=== PATIENT | female | born 1965 | race Caucasian/White ===

== ENCOUNTER → 2016-10-05 | Outpatient (CLI) | payer OTHER ==
[~2016-10-05] MED LIST: Albuterol Inhaler INH; BUPR15TA PO; CETI10TA PO; EPI; HYZAAR PO; Ibuprofen PO; SING10TA31 PO; Tylenol PO; VICO5TAB OR; [UNRECOGNIZED DRUG - OTHER] PO; [UNRECOGNIZED DRUG - REMARK]
--- NOTE | 2016-10-05 09:24 | REP ---
MAXILLOFACIAL CT WITHOUT CONTRAST: HISTORY: Chronic sphenoid sinusitis. The frontal sinuses are hypoplastic. Minimal mucosal thickening is present in the left maxillary and right sphenoid sinuses. The remaining sinuses are clear. The middle and inferior nasal turbinates are partially paradoxical. There is minimal deviation of the nasal septum to the right. A spur is present arising from the right side of the nasal septum. The cribriform plate, medial maravilla of the orbits and optic canals are intact. The carotid canals form a segment of the posterolateral maravilla of the sphenoid sinus. There is sclerosis of the maravilla of the right sphenoid sinus consistent with chronic sinusitis. IMPRESSION: Sinus mucosal thickening as described above. Signed by Hugo Ashford MD 10/05/2016 09:56 A
== END ==
LOC: M RAD 08:51
PROVIDERS: ATTEND Otolaryngology
DX: J32.3 Chronic sphenoidal sinusitis (principal)

== ENCOUNTER → 2016-11-26 | Outpatient (CLI) | payer OTHER ==
[~2016-11-26] MED LIST changes: +ALBU17IN INH; +ATOR40TA PO; +CYMB1CAP4 PO; +LAST0.25 OU; +LIDO5DIS36 TD; +LOSA100T36 PO; +LOTE0.5S OU; +MIRA33504 PO; +MONT10TA2 PO; +NAPR500T2 PO; +OMEG100011 PO; +RHIN32SU; +ROBA500T PO; +TRAM50TA2 PO; +VITA500055 PO; +ZOMI5TAB2 PO; +ZONI100C2 PO
[2016-11-26 17:44] LABS: ANION GAP 8 MEQ/L (8-16); BLOOD UREA NITROGEN 14 MG/DL (7-18); CARBON DIOXIDE LEVEL 28 MEQ/L (21-32); CHLORIDE LEVEL 105 MEQ/L (98-107); CREATININE FOR GFR 0.79 MG/DL (0.55-1.02); GLOMERULAR FILTRATION RATE > 60.0 (>51); GLUCOSE, FASTING 98 MG/DL (70-105); POTASSIUM SERUM 3.5 MEQ/L (3.5-5.1); SODIUM LEVEL 141 MEQ/L (136-145)
--- NOTE | 2016-11-27 07:15 | ECGEPIP ---
Stationary ECG Study [facility] Test Date: 2016-11-26 Pat Name: LONI BAILON Department: Room: - Gender: F Crate Tier: MALENA : 1965 Requested By: Otoniel Cha Order Number: [id number] Reading MD: Gwyn Ross Measurements Intervals [place] Rate: 75 P: 32 RI: 159 QRS: 30 QRSD: 90 T: 49 QT: 385 QTc: 432 Interpretive Statements Normal sinus rhythm Minor T-wave abnormality Comparison tracing not on file Electronically Signed On 11-27-2016 7:15:37 EDT by Gwyn Ross
== END ==
LOC: M LAB 16:38
PROVIDERS: ATTEND Anesthesiology
DX: I10 Essential (primary) hypertension (principal)

== ENCOUNTER → 2016-11-28 | Day surgery (SDC) | payer OTHER ==
[~2016-11-28] VITALS: Ht 160 cm; Wt 85.3 kg
[~2016-11-28] MED LIST changes: +D5W/0.2% SODIUM CHLORIDE 250 ML IV ONE; +DESFLURANE 240 ML INHALANT As Ordered ONE; +EPINEPHrine 1MG/ML INJ 30ML MD-VIAL As Ordered ONE; +GLYCOPYRROLATE INJ 0.2 MG/ML 2 ML VIAL As Ordered ONE; +HYDROmorphone HCL 1 MG/ML SYRINGE (J1170) IV PRN; +HYDROmorphone HCL 2 MG/ML 1ML VIAL (J1170) As Ordered ONE; +LABETALOL HCL 100 MG/20 ML VIAL As Ordered ONE; +LIDOCAINE 1% MDV 20ML VIAL SQ ONE; +LIDOCAINE 2% INJ 100 MG/5 ML SDV (FOR ANES.) As Ordered ONE; +LIDOCAINE W/EPINEPHRINE 1% 20ML VIAL As Ordered ONE; +LR 1,000 ML IV ONE; +LR 1,000 ML IV SCH; +METHYLENE BLUE 0.5% (5MG/ML) 10 ML AMP (PROVAYBLUE)(Q9968 PER 1MG) As Ordered ONE; +METOCLOPRAMIDE INJ 10MG/2ML VIAL (J2765) As Ordered ONE; +MIDAZOLAM INJ 2 MG/2 ML VIAL (J2250) As Ordered ONE; +NEOSTIGMINE 1MG/ML 5 ML SYRINGE (J2710) As Ordered ONE; +NORCO, ANEXSIA 5/325MG TABLET (HYDROcodone/ACETAMINOPHEN) PO PRN; +ONDANSETRON 4MG/2ML VIAL (J2405) As Ordered ONE; +ONDANSETRON 4MG/2ML VIAL (J2405) IV PRN; +PHENYLephrine HCL 500 MCG/5 ML (100MCG/ML) SYRINGE (J2370) As Ordered ONE; +PROPOFOL 200 MG/20 ML VIAL As Ordered ONE; +PROPOFOL 500 MG/50 ML VIAL As Ordered ONE; +ROCURONIUM BROMIDE 50 MG/5 ML VIAL As Ordered ONE; +SODIUM CHLORIDE 0.9% NASAL GEL 15MG (AYR) As Ordered ONE; +SUCCINYLCHOLINE 100 MG/5 ML SYRINGE (J0330) As Ordered ONE; +dexameTHASONE 4 MG/ML 1ML VIAL (J1100) IV ONE; +ePHEDrine SULFATE 25 MG/5 ML(5MG/ML) SYRINGE As Ordered ONE; +fentaNYL 100 MCG/2 ML INJECTION (J3010) As Ordered ONE; +fentaNYL 100 MCG/2 ML INJECTION (J3010) IV PRN
[2016-11-28 17:45] VITALS: BP 132/78
--- NOTE | 2016-11-29 23:11 | RO ---
DATE OF PROCEDURE: 11/28/2016 PREOPERATIVE DIAGNOSES: Right chronic sphenoid sinusitis and headache. POSTOPERATIVE DIAGNOSES: Right chronic sphenoid sinusitis and headache. PROCEDURE PERFORMED: 1. Endoscopic right anterior and posterior ethmoidectomy. 2. Endoscopic right sphenoidotomy. 3. Stereotactic surgery using the [facility]. 4. Implantation of the Propel stent. SURGEON: Ross Jarvis MD BACK FILLER OPERATOR: ANESTHESIA: General. CLINICAL PREAMBLE: This 51-year-old woman who has a chronic history of headache was found to have right chronic sphenoiditis on MRI. She was referred to my office for further management. CT scan revealed evidence of right chronic sphenoiditis. She has used medical therapy without resolution of her symptoms. Management options including surgery listed above have been discussed. The patient understood and consented to the procedure. DESCRIPTION OF OPERATION: Patient was identified in preoperative holding and the right face dotted. She was brought to the operating room in stable condition. In supine position on the operating table, patient received general anesthesia followed orotracheal intubation without incident. Patient was prepped and draped in the usual fashion for the procedure. Both eyes and nasal cavity were packed using pledgets soaked in 1:100,000 epinephrine. Both eyes were lubricated and protected using the paper tape. The headband from the [facility] was then successfully attached to the forehead. Brain Lab CT images were successfully integrated into the system. Good surface matching was obtained. At this time the pledgets were removed from the nasal cavity. The right middle nasal turbinate and the right uncinate process were infiltrated with 1% lidocaine with 1:100,000 epinephrine. The right middle nasal turbinate was then medialized. The right ethmoidalis bullae was infiltrated with 1% lidocaine with 1:100,000 epinephrine. Using the Blakesley forceps, the ethmoidalis bullae was taken down. The anterior ethmoid air cells were hidden. The basal lamella was identified and penetrated. The posterior ethmoid air cells were also resected to afford the visualization of the anterior surface of the right sphenoid sinus. Upon confirmation of the position of the instruments with the [facility] navigation images, the anterior surface of the right sphenoid sinus was entered using the sphenoid punch. The right sphenoidotomy was successfully performed. Inspissated crusted mucus was noted in the right sphenoid sinus cavity. Hard encrusted yellowish crust was also encountered and successfully irrigated and removed. Approximately 150 mL of normal saline was used to irrigate the right sphenoid sinus. The sphenoid sinus mucosa was successfully visualized and found to be free of any debris. At this time the Propel stent was inserted to medialize the right middle nasal turbinate. At the end of the procedure sponge and instrument counts were correct. No complications during the procedure. Estimated blood loss was approximately 50 mL. General anesthesia was reversed and the patient was extubated and brought to recovery room in stable condition. In the recovery area, patient exhibited full and symmetric extraocular motion with no evidence of periorbital ecchymosis.
== END | disposition home or self-care (01) ==
LOC: M SDC 08:31
PROVIDERS: ATTEND Otolaryngology
DX: J32.3 Chronic sphenoidal sinusitis (principal); G43.909 Migraine, unspecified, not intractable, without status migrainosus; G47.33 Obstructive sleep apnea (adult) (pediatric); M54.9 Dorsalgia, unspecified; T88.59XD Other complications of anesthesia, subsequent encounter; R00.2 Palpitations; I10 Essential (primary) hypertension; E78.00 Pure hypercholesterolemia, unspecified; F41.9 Anxiety disorder, unspecified; J45.909 Unspecified asthma, uncomplicated; J30.2 Other seasonal allergic rhinitis; Z88.8 Allergy status to other drugs, medicaments and biological substances; Z91.09 Other allergy status, other than to drugs and biological substances; Z88.5 Allergy status to narcotic agent; Z91.048 Other nonmedicinal substance allergy status; Z79.899 Other long term (current) drug therapy; Z90.710 Acquired absence of both cervix and uterus; Z98.51 Tubal ligation status; Z87.442 Personal history of urinary calculi
CPT/HCPCS: 31256; 31287; 88305; 96374; 96375; C2625; J0330; J1100; J1170; J2250; J2370; J2405; J2710; J2765; J3010; Q9968

== ENCOUNTER → 2016-12-28 | Outpatient (REF) | payer OTHER ==
[~2016-12-28] MED LIST changes: -ATOR40TA PO; +ATOR40TA75 PO; -D5W/0.2% SODIUM CHLORIDE 250 ML IV ONE; -DESFLURANE 240 ML INHALANT As Ordered ONE; -EPINEPHrine 1MG/ML INJ 30ML MD-VIAL As Ordered ONE; -GLYCOPYRROLATE INJ 0.2 MG/ML 2 ML VIAL As Ordered ONE; -HYDROmorphone HCL 1 MG/ML SYRINGE (J1170) IV PRN; -HYDROmorphone HCL 2 MG/ML 1ML VIAL (J1170) As Ordered ONE; -LABETALOL HCL 100 MG/20 ML VIAL As Ordered ONE; -LIDO5DIS36 TD; +LIDO5DIS41 TD; -LIDOCAINE 1% MDV 20ML VIAL SQ ONE; -LIDOCAINE 2% INJ 100 MG/5 ML SDV (FOR ANES.) As Ordered ONE; -LIDOCAINE W/EPINEPHRINE 1% 20ML VIAL As Ordered ONE; -LR 1,000 ML IV ONE; -LR 1,000 ML IV SCH; -METHYLENE BLUE 0.5% (5MG/ML) 10 ML AMP (PROVAYBLUE)(Q9968 PER 1MG) As Ordered ONE; -METOCLOPRAMIDE INJ 10MG/2ML VIAL (J2765) As Ordered ONE; -MIDAZOLAM INJ 2 MG/2 ML VIAL (J2250) As Ordered ONE; -NAPR500T2 PO; +NAPR500T3 PO; -NEOSTIGMINE 1MG/ML 5 ML SYRINGE (J2710) As Ordered ONE; -NORCO, ANEXSIA 5/325MG TABLET (HYDROcodone/ACETAMINOPHEN) PO PRN; -ONDANSETRON 4MG/2ML VIAL (J2405) As Ordered ONE; -ONDANSETRON 4MG/2ML VIAL (J2405) IV PRN; -PHENYLephrine HCL 500 MCG/5 ML (100MCG/ML) SYRINGE (J2370) As Ordered ONE; -PROPOFOL 200 MG/20 ML VIAL As Ordered ONE; -PROPOFOL 500 MG/50 ML VIAL As Ordered ONE; -ROCURONIUM BROMIDE 50 MG/5 ML VIAL As Ordered ONE; -SODIUM CHLORIDE 0.9% NASAL GEL 15MG (AYR) As Ordered ONE; -SUCCINYLCHOLINE 100 MG/5 ML SYRINGE (J0330) As Ordered ONE; -dexameTHASONE 4 MG/ML 1ML VIAL (J1100) IV ONE; -ePHEDrine SULFATE 25 MG/5 ML(5MG/ML) SYRINGE As Ordered ONE; -fentaNYL 100 MCG/2 ML INJECTION (J3010) As Ordered ONE; -fentaNYL 100 MCG/2 ML INJECTION (J3010) IV PRN
== END ==
LOC: EEVIPCON 17:17 → M LAB REF 17:17
PROVIDERS: ATTEND Physician Assistant Medical
DX: J32.3 Chronic sphenoidal sinusitis (principal)

== ENCOUNTER → 2017-01-25 | Outpatient (CLI) | payer OTHER ==
--- NOTE | 2017-01-25 14:05 | REP ---
MAXILLOFACIAL CT WITHOUT CONTRAST: HISTORY: Chronic sphenoid sinusitis. COMPARISON: 10/05/2016. The frontal sinuses are hypoplastic. The patient is status post partial right ethmoidectomy and right middle nasal turbinectomy. A small defect is present in the anterior wall of the right sphenoid sinus. Mild mucosal thickening is present in the right ethmoid sinus. Minimal mucosal thickening is present in the left maxillary sinus. There is complete opacification of the right sphenoid sinus. The remaining sinuses are clear. The osteomeatal units are patent. The middle and inferior nasal turbinates are partially paradoxical. There is minimal deviation of the nasal septum to the right. A spur is present arising from the right side of the nasal septum. The cribriform plate, medial maravilla of the orbits and optic canals are intact. The carotid canals form a segment of the posterolateral maravilla of the sphenoid sinus. There is sclerosis of the maravilla of the right sphenoid sinus consistent with chronic sinusitis. IMPRESSION: 1. Postoperative change as described above. 2. Sinus mucosal thickening as described above. Signed by Hugo Ashford MD 01/25/2017 02:08 P
== END ==
LOC: M RAD 13:14
PROVIDERS: ATTEND Physician Assistant Medical
DX: J32.3 Chronic sphenoidal sinusitis (principal); J34.89 Other specified disorders of nose and nasal sinuses

== ENCOUNTER → 2017-02-05 | Outpatient (REF) | payer OTHER | LOC: M LAB REF 15:27 | PROVIDERS: ATTEND Otolaryngology | DX: J32.3 Chronic sphenoidal sinusitis (principal) ==

== ENCOUNTER 2017-08-26 16:20 | Emergency (ER) | payer OTHER | END 2017-08-26 19:07 | disposition home or self-care (01) | LOC: M ED 16:20 | DX: S16.1XXA Strain of muscle, fascia and tendon at neck level, initial encounter (principal); S40.012A Contusion of left shoulder, initial encounter; S00.93XA Contusion of unspecified part of head, initial encounter; V48.5XXA Car driver injured in noncollision transport accident in traffic accident, initial encounter; Y92.9 Unspecified place or not applicable; Y93.9 Activity, unspecified; I10 Essential (primary) hypertension; Z98.1 Arthrodesis status; M48.02 Spinal stenosis, cervical region; M25.78 Osteophyte, vertebrae; J30.2 Other seasonal allergic rhinitis; Z79.899 Other long term (current) drug therapy; Z88.5 Allergy status to narcotic agent; Z88.8 Allergy status to other drugs, medicaments and biological substances; Z91.89 Other specified personal risk factors, not elsewhere classified | CPT/HCPCS: 73030 ==

== ENCOUNTER → 2018-01-10 | Outpatient (CLI) | payer OTHER | LOC: M RAD 15:05 | DX: J34.89 Other specified disorders of nose and nasal sinuses (principal); R43.9 Unspecified disturbances of smell and taste; J32.9 Chronic sinusitis, unspecified | CPT/HCPCS: 70486 ==

== ENCOUNTER → 2018-12-31 | Outpatient (CLI) | payer OTHER ==
[~2018-12-31] MED LIST changes: +AMLO5TAB6 PO; +HYZA100T2 PO; +IBUP-1022 PO; -LOSA100T36 PO; +LOSA100T50 PO; +NAPR-885 PO; -NAPR500T3 PO; +PROP60TA14 PO; +SOMA350T PO
--- NOTE | 2018-12-31 10:30 | REPMRS ---
Patient History The patient states she has not had a clinical breast exam in over a year. Family history of breast cancer at age 55 in mother, breast cancer in maternal aunt, breast cancer in maternal aunt, breast cancer in maternal aunt, breast cancer in maternal aunt, uterine cancer in maternal aunt, uterine cancer in maternal aunt. 2D ONLY Digital Mammo Screening Bilat: December 31, 2018 - Exam #: [id number] Bilateral CC and MLO view(s) were taken. Technologist: Angela Bhandari, Technologist Prior study comparison: July 03, 2013, bilateral digital woman screen mammo, performed at [facility]. August 17, 2011, bilateral digital woman screen mammo, performed at [facility]. July 26, 2010, bilateral digital woman screen mammo, performed at [facility]. FINDINGS: The breast tissue is heterogeneously dense. This may lower the sensitivity of mammography. There is a moderate amount of heterogeneously dense fibroglandular tissue which is fairly symmetric. There is no interval development of dominant mass, architectural distortion, or grouped microcalcification typical of malignancy. There has been no change in the appearance of the mammogram from the prior studies. Assessment: BI-RADS/ACR category 1 mammogram. Negative Mammogram. Recommendation Routine screening mammogram of both breasts in 1 year (for women over age 40). This patient's Lifetime Breast Cancer RIsk is estimated at 17.4 %. This mammogram was interpreted with the aid of an FDA-approved computer-aided dectection system. Electronically Signed By: Johny Guillermo MD 12/31/18 [id number]
== END ==
LOC: M RAD 09:34
PROVIDERS: ATTEND Family Medicine
DX: Z12.31 Encounter for screening mammogram for malignant neoplasm of breast (principal)

== ENCOUNTER → 2019-02-24 | Outpatient (CLI) | payer OTHER ==
--- NOTE | 2019-02-25 08:25 | REP ---
CT of the sinuses without contrast Indication: Headache. Comparison: CT maxillofacial bones of 01/10/2018. Technique: Axial CT of the maxillofacial bones were performed without contrast. Axial and coronal bone reformatted images were provided. Findings: Changes of partial right ethmoidectomy and right middle nasal turbinectomy are again noted. Frontal sinuses: Right frontal sinus is under pneumatized. Left frontal sinus is clear. Ethmoid air cells: Clear bilaterally. Sphenoid sinuses: Minimal mucosal thickening within the right sphenoid sinus. The left sphenoid sinus is clear. The sphenoid septum inserts on the left of midline. Maxillary sinuses: Right maxillary sinus is clear. Mild mucosal thickening of the left maxillary sinus, similar to prior. Ostiomeatal units are patent. Nasal passages and septum: Nasal septum is midline. Nasal passages are clear. Partial paradoxical middle turbinates. Mastoid air cells: Clear bilaterally. Other: The cribriform plate is intact. Impression: Mild mucosal thickening of the right sphenoid and left maxillary sinuses, similar to prior. Electronically Signed by Mack Ortiz MD 02/25/2019 08:15 A
== END ==
LOC: M RAD 16:33
PROVIDERS: ATTEND Otolaryngology
DX: R51 Headache (principal)

== ENCOUNTER → 2024-06-09 | Outpatient (CLI) | payer MEDICARE, OTHER ==
[~2024-06-09] MED LIST changes: +AMLO1TAB24 PO; -AMLO5TAB6 PO; -HYZA100T2 PO; +LOSA-534 PO; +LOSA100T46 PO; -LOSA100T50 PO; -MONT10TA2 PO; +MONT10TA97 PO; -ZONI100C2 PO; +ZONI100C67 PO
== END ==
LOC: M PLAIMG 09:36
PROVIDERS: ATTEND Nurse Practitioner Adult Health
DX: H93.A1 Pulsatile tinnitus, right ear (principal); I65.23 Occlusion and stenosis of bilateral carotid arteries

== ENCOUNTER → 2024-10-31 | Outpatient (CLI) | payer MEDICARE, OTHER ==
[~2024-10-31] MED LIST changes: +LIDO1ADH93 TD; -LIDO5DIS41 TD
== END ==
LOC: M RAD 14:46
PROVIDERS: ATTEND Nurse Practitioner Adult Health
DX: M50.00 Cervical disc disorder with myelopathy, unspecified cervical region (principal)